=== PATIENT | male | born 1990 | race African-American/Black ===

== ENCOUNTER 2025-08-18 22:19 | Emergency (ER) | payer OTHER ==
[2025-08-18] MEDS ORDERED: Lidocaine 1% (PF) 30 ML VIAL ONE (22:31)
== END 2025-08-18 23:10 | disposition home or self-care (01) ==
LOC: NAV ERS 22:19 → EEVIPCON 22:19 → NAV ERS 23:10
DX: S81.812A Laceration without foreign body, left lower leg, initial encounter (principal); E11.9 Type 2 diabetes mellitus without complications; Z79.84 Long term (current) use of oral hypoglycemic drugs; W26.8XXA Contact with other sharp object(s), not elsewhere classified, initial encounter
CPT/HCPCS: 12002; 99282; J2003